=== PATIENT | male | born 1950 | race Caucasian/White ===

== ENCOUNTER 2017-04-12 15:51 | Outpatient (CLI) | payer BC ==
--- NOTE | 2017-04-12 16:46 | RAD ---
LEFT HIP 2 VIEWS: HISTORY: Left hip pain. FINDINGS: Thee is mild joint space narrowing with moderate osteophytosis. Femoral head contour is maintained. No acute fracture or dislocation. IMPRESSION: Mild osteoarthritic changes left hip. POS: [facility]
--- NOTE | 2017-04-12 16:47 | RAD ---
RIGHT HIP 2 VIEWS: HISTORY: Right hip pain. FINDINGS: Femoral head contour is maintained. There are mild degenerative changes at the hip. No evidence of fracture. IMPRESSION: Mild degenerative change without evidence of acute fracture. POS: [facility]
== END 2017-04-12 15:52 | disposition home or self-care (01) ==
LOC: TBSIIMAG 15:51
PROVIDERS: ATTEND Neurological Surgery
DX: M25.551 Pain in right hip (principal); M25.552 Pain in left hip; M16.0 Bilateral primary osteoarthritis of hip